=== PATIENT | male | born 1960 | race Caucasian/White ===

== ENCOUNTER 2023-06-27 09:11 | Observation (INO) | payer OTHER ==
[2023-06-27 09:21] VITALS: TEMP 98.1
--- NOTE | 2023-06-27 09:42 | ED ---
General Adult HPI - General Chief complaint: Chest Pain Stated complaint: chest pain Time Seen by Provider: 06/27/23 09:29 Source: patient, RN notes reviewed, old records reviewed Mode of arrival: wheelchair Limitations: no limitations - History of Present Illness Initial comments: 63-year-old male presenting for evaluation of central and left-sided chest pain radiating to the left arm. Patient's symptoms began several months ago with exertional chest tightness. He has followed with cardiology and has outpatient testing scheduled. This morning he developed symptoms while at rest of central chest tightness with radiation to the left arm. No associated nausea or vomiting. No diaphoresis. Patient is a nondiabetic, nonsmoker. He has no previous history of coronary artery disease. - Related Data Home Medications Medication Instructions Recorded Confirmed Aspirin EC [Ecotrin Low Dose] 81 mg PO DAILY 06/27/23 06/27/23 Clobetasol Propionate [Temovate 1 applic TOPICAL BID PRN 06/27/23 06/27/23 0.05% Cream] Meloxicam [Mobic] 15 mg PO DAILY 06/27/23 06/27/23 Turmeric Root Extract [Turmeric] 1,000 mg PO HS 06/27/23 06/27/23 Allergies Allergy/AdvReac Type Severity Reaction Status Date / Time amoxicillin Allergy Rash/Hives Verified 06/27/23 09:41 bacitracin AdvReac Rash/Hives Verified 06/27/23 09:41 [From Neosporin ([id number])] miconazole AdvReac Rash/Hives Verified 06/27/23 09:41 [From Neosporin AF] neomycin AdvReac Rash/Hives Verified 06/27/23 09:41 [From Neosporin ([id number])] polymyxin B AdvReac Rash/Hives Verified 06/27/23 09:41 [From Neosporin ([id number])] Review of Systems ROS Statement: Those systems with pertinent positive or pertinent negative responses have been documented in the HPI. ROS Other: All systems not noted in ROS Statement are negative. Past Medical History Past Medical History: No Reported History History of Any Multi-Drug Resistant Organisms: None Reported Past Surgical History: No Surgical Hx Reported Past Psychological History: No Psychological Hx Reported Smoking Status: Never smoker Past Alcohol Use History: Occasional Past Drug Use History: None Reported General Exam Limitations: no limitations General appearance: alert, in no apparent distress Head exam: Present: atraumatic, normocephalic Eye exam: Present: normal appearance, PERRL ENT exam: Present: normal exam Neck exam: Present: normal inspection. Absent: tenderness, meningismus Respiratory exam: Present: normal lung sounds bilaterally. Absent: respiratory distress, wheezes Cardiovascular Exam: Present: regular rate, normal rhythm GI/Abdominal exam: Present: soft. Absent: distended, tenderness, guarding Extremities exam: Present: normal inspection, normal capillary refill. Absent: calf tenderness Neurological exam: Present: alert, oriented X3, CN II-XII intact. Absent: motor sensory deficit Psychiatric exam: Present: normal affect, normal mood Skin exam: Present: warm, dry, intact. Absent: cyanosis, diaphoretic Course Vital Signs 06/27/23 06/27/23 09:18 09:45 Temperature 98.1 F Pulse Rate 66 60 Respiratory 18 18 Rate Blood Pressure 153/91 140/82 O2 Sat by Pulse 97 98 Oximetry Medical Decision Making - Medical Decision Making Was pt. sent in by a medical professional or institution (, PA, LEAN SPECIALIST, urgent care, hospital, or care home...) When possible be specific @ -No Did you speak to anyone other than the patient for history (EMS, parent, family, police, friend...)? What history was obtained from this source @ -No Did you review nursing and triage notes (agree or disagree)? Why? @ -I reviewed and agree with nursing and triage notes Were old charts reviewed (outside hosp., previous admission, EMS record, old EKG, old radiological studies, urgent care reports/EKG's, care home records)? Report findings @ -No old charts were reviewed Differential Diagnosis (chest pain, altered mental status, abdominal pain women, abdominal pain men, vaginal bleeding, weakness, fever, dyspnea, syncope, headache, dizziness, GI bleed, back pain, seizure, CVA, palpatations, mental health, musculoskeletal)? @ Differential Chest Pain: Stable Angina, Unstable Angina, STEMI, NSTEMI Aortic Dissection, Pneumothorax, Musculoskeletal, Esophageal Spasm GERD, Cholecystitis, Pancreatitis, Zoster, this is not meant to be an all-inclusive list. EKG interpreted by me (3pts min.). @ -Sinus rhythm rate of 61, LA interval 166, QRS duration 76, QTC 407, no ST segment elevation X-rays interpreted by me (1pt min.). @ -None done CT interpreted by me (1pt min.). @ -None done U/S interpreted by me (1pt. min.). @ -None done What testing was considered but not performed or refused? (CT, X-rays, U/S, labs)? Why? @ -None What meds were considered but not given or refused? Why? @ -None Did you discuss the management of the patient with other professionals (professionals i.e. DrMingo, PA, LEAN SPECIALIST, lab, RT, psych nurse, social work administrator, color buffer, teacher, media liaison officer, catalytic case operator)? Give summary @ Dr. Rosado Was smoking cessation discussed for >3mins.? @ -No Was critical care preformed (if so, how long)? @ -No Were there social determinants of health that impacted care today? How? (Homelessness, low income, unemployed, alcoholism, drug addiction, transportation, low edu. Level, literacy, decrease access to med. care, assisted, rehab)? @ -No Was there de-escalation of care discussed even if they declined (Discuss DNR or withdrawal of care, Hospice)? DNR status @ -No What co-morbidities impacted this encounter? (DM, HTN, Smoking, COPD, CAD, Cancer, CVA, ARF, Chemo, Hep., AIDS, mental health diagnosis, sleep apnea, morbid obesity)? @ -None Was patient admitted / discharged? Hospital course, mention meds given and route, prescriptions, significant lab abnormalities, going to OR and other pertinent info. @ -[63-year-old male presenting with chest pain with typical features. No prior history of CAD. EKG is sinus rhythm without ST segment elevation. Chest x-ray is clear. Has normal CBC, normal CMP, negative initial troponin. He is given aspirin emergency department and will be admitted for serial cardiac enzymes, telemetry, cardiology consultation. Undiagnosed new problem with uncertain prognosis? @ -No Drug Therapy requiring intensive monitoring for toxicity (Heparin, Nitro, Insulin, Cardizem)? @ -No Were any procedures done? @ -No Diagnosis/symptom? @ -[Chest pain Acute, or Chronic, or Acute on Chronic? @ Acute Uncomplicated (without systemic symptoms) or Complicated (systemic symptoms)? @ -default Side effects of treatment? @ -No Exacerbation, Progression, or Severe Exacerbation? @ -No Poses a threat to life or bodily function? How? (Chest pain, [place], NC, pneumonia, PE, COPD, DKA, ARF, appy, cholecystitis, CVA, Diverticulitis, Homicidal, Suicidal, threat to staff... and all critical care pts) @ -Yes, chest pain - Lab Data Result diagrams: 06/27/23 09:44 06/27/23 09:44 Lab Results 06/27/23 06/27/23 06/27/23 Range/Units 09:44 09:44 09:44 WBC 5.1 (3.8-10.6) k/uL RBC 4.79 (4.30-5.90) m/uL Hgb 14.2 (13.0-17.5) gm/dL Hct 42.1 (39.0-53.0) % MCV 87.9 (80.0-100.0) fL MCH 29.7 (25.0-35.0) pg MCHC 33.8 (31.0-37.0) g/dL RDW 13.4 (11.5-15.5) % Plt Count 271 (150-450) k/uL MPV 7.7 Neutrophils % 52 % Lymphocytes % 32 % Monocytes % 6 % Eosinophils % 7 % Basophils % 1 % Neutrophils # 2.6 (1.3-7.7) k/uL Lymphocytes # 1.6 (1.0-4.8) k/uL Monocytes # 0.3 (0-1.0) k/uL Eosinophils # 0.4 (0-0.7) k/uL Basophils # 0.1 (0-0.2) k/uL PT 10.4 (9.0-12.0) sec INR 1.0 (<1.2) APTT 23.4 (22.0-30.0) sec Sodium 139 (137-145) mmol/L Potassium 4.8 (3.5-5.1) mmol/L Chloride 105 (98-107) mmol/L Carbon Dioxide 25 (22-30) mmol/L Anion Gap 9 mmol/L BUN 17 (9-20) mg/dL Creatinine 1.02 (0.66-1.25) mg/dL Est GFR (CKD-EPI)AfAm 90 (>60 ml/min/1.73 sqM) Est GFR (CKD-EPI)NonAf 78 (>60 ml/min/1.73 sqM) Glucose 100 H (74-99) mg/dL Calcium 9.3 (8.4-10.2) mg/dL Magnesium 2.2 (1.6-2.3) mg/dL Total Bilirubin 0.9 (0.2-1.3) mg/dL AST 41 (17-59) U/L ALT 40 (4-49) U/L Alkaline Phosphatase 65 (38-126) U/L Troponin I (0.000-0.034) ng/mL Total Protein 7.8 (6.3-8.2) g/dL Albumin 4.3 (3.5-5.0) g/dL 06/27/23 Range/Units 09:44 WBC (3.8-10.6) k/uL RBC (4.30-5.90) m/uL Hgb (13.0-17.5) gm/dL Hct (39.0-53.0) % MCV (80.0-100.0) fL MCH (25.0-35.0) pg MCHC (31.0-37.0) g/dL RDW (11.5-15.5) % Plt Count (150-450) k/uL MPV Neutrophils % % Lymphocytes % % Monocytes % % Eosinophils % % Basophils % % Neutrophils # (1.3-7.7) k/uL Lymphocytes # (1.0-4.8) k/uL Monocytes # (0-1.0) k/uL Eosinophils # (0-0.7) k/uL Basophils # (0-0.2) k/uL PT (9.0-12.0) sec INR (<1.2) APTT (22.0-30.0) sec Sodium (137-145) mmol/L Potassium (3.5-5.1) mmol/L Chloride (98-107) mmol/L Carbon Dioxide (22-30) mmol/L Anion Gap mmol/L BUN (9-20) mg/dL Creatinine (0.66-1.25) mg/dL Est GFR (CKD-EPI)AfAm (>60 ml/min/1.73 sqM) Est GFR (CKD-EPI)NonAf (>60 ml/min/1.73 sqM) Glucose (74-99) mg/dL Calcium (8.4-10.2) mg/dL Magnesium (1.6-2.3) mg/dL Total Bilirubin (0.2-1.3) mg/dL AST (17-59) U/L ALT (4-49) U/L Alkaline Phosphatase (38-126) U/L Troponin I <0.012 (0.000-0.034) ng/mL Total Protein (6.3-8.2) g/dL Albumin (3.5-5.0) g/dL Disposition Clinical Impression: Chest pain Disposition: ADMITTED IP TO THIS HOSP Condition: Stable Is patient prescribed a controlled substance at d/c from ED?: No Referrals: Anshul Perry MD [Primary Care Provider] - 1-2 days Time of Disposition: 11:37
--- NOTE | 2023-06-27 09:53 | XR ---
EXAMINATION TYPE: XR chest 2V DATE OF EXAM: 06/27/2023 9:49 AM COMPARISON: None TECHNIQUE: XR chest 2V Frontal and lateral views of the chest. CLINICAL INDICATION:Male, 63 years old with history of Chest Pain; FINDINGS: Lungs/Pleura: There is no evidence of pleural effusion, focal consolidation, or pneumothorax. Pulmonary vascularity: Unremarkable. Heart/mediastinum: Cardiomediastinal silhouette is unremarkable. Atherosclerotic calcifications are seen in the aorta. Musculoskeletal: No acute osseous pathology. IMPRESSION: No acute cardiopulmonary disease/process.
[2023-06-27 10:15] LABS: Basophils # (A) 0.1 k/uL (0-0.2); Basophils % (A) 1 %; Eosinophils # (A) 0.4 k/uL (0-0.7); Eosinophils % (A) 7 %; HCT 42.1 % (39.0-53.0); HGB 14.2 gm/dL (13.0-17.5); Lymphocytes # (A) 1.6 k/uL (1.0-4.8); Lymphocytes % (A) 32 %; MCH 29.7 pg (25.0-35.0); MCHC 33.8 g/dL (31.0-37.0); MCV 87.9 fL (80.0-100.0); Mean Platelet Volume 7.7; Monocytes # (A) 0.3 k/uL (0-1.0); Monocytes % (A) 6 %; Neutrophils # (A) 2.6 k/uL (1.3-7.7); Neutrophils % (A) 52 %; Platelet Count 271 k/uL (150-450); RBC 4.79 m/uL (4.30-5.90); RDW 13.4 % (11.5-15.5); WBC 5.1 k/uL (3.8-10.6)
[2023-06-27 10:24] LABS: Partial Thromboplastin Time 23.4 sec (22.0-30.0); Prothrombin Time 10.4 sec (9.0-12.0)
[2023-06-27 10:49] LABS: ALT 40 U/L (4-49); African American GFR (CKD) 90 (>60 ml/min/1.73 sqM); Albumin 4.3 g/dL (3.5-5.0); Anion Gap 9 mmol/L; Blood Urea Nitrogen 17 mg/dL (9-20); Calcium 9.3 mg/dL (8.4-10.2); Carbon Dioxide 25 mmol/L (22-30); Chloride 105 mmol/L (98-107); Glucose 100 mg/dL (74-99); Non-African American GFR(CKD) 78 (>60 ml/min/1.73 sqM); Sodium 139 mmol/L (137-145); Total Bilirubin 0.9 mg/dL (0.2-1.3); Total Protein 7.8 g/dL (6.3-8.2)
[2023-06-27 11:12] LABS: AST 41 U/L (17-59); Alkaline Phosphatase 65 U/L (38-126); Magnesium 2.2 mg/dL (1.6-2.3); Potassium 4.8 mmol/L (3.5-5.1)
[2023-06-27] MEDS ORDERED: MORPHINE SULFATE 4 MG/ML SYRINGE IV PRN (11:34)
[2023-06-27] MEDS ORDERED: ASPIRIN 325 MG TAB PO STA ×2 (11:34→12:20)
[2023-06-27] MEDS ORDERED: ACETAMINOPHEN TAB 325 MG TAB PO PRN (11:34)
[2023-06-27] MEDS ORDERED: NALOXONE 0.4 MG/ML 1 ML VIAL IV PRN (11:34)
[2023-06-27] MEDS ORDERED: ATORVASTATIN 80 MG TAB PO STA (12:20)
[2023-06-27] MEDS ORDERED: ALPRAZolam 0.5 MG TAB PO PRN (12:20)
[2023-06-27] MEDS ORDERED: ALPRAZolam 0.25 MG TAB PO PRN (12:20)
[2023-06-27] MEDS ORDERED: NITROGLYCERIN SL TABS 0.4 MG TAB SUBLINGUAL PRN (12:20)
[2023-06-27] MEDS ORDERED: METOPROLOL TARTRATE 25 MG TAB PO SCH (12:30)
[2023-06-27] MEDS ORDERED: SODIUM CHLORIDE 0.9% 1,000 ML IV SCH (12:32)
[2023-06-27] MEDS ORDERED: fentaNYL (PF) 50 MCG/ML 2 ML AMP ONE (13:08)
[2023-06-27] MEDS ORDERED: VERAPAMIL 2.5 MG/ML 2 ML AMP ONE ×2 (13:08→13:31)
[2023-06-27 13:09] VITALS: RESP 16
[2023-06-27] MEDS ORDERED: fentaNYL (PF) 50 MCG/ML 2 ML AMP IVP ONE (13:25)
[2023-06-27] MEDS ORDERED: MIDAZOLAM 2 MG/2 ML VIAL IVP ONE (13:25)
[2023-06-27] MEDS ORDERED: LIDOCAINE 2% (PF) 20 MG/ML 5 ML VIAL SQ ONE (13:27)
--- NOTE | 2023-06-27 13:27 | P.CRDCN ---
History of Present Illness History of present illness: HISTORY OF PRESENT ILLNESS: This is a 63-year-old male with a past medical history significant for mitral valve prolapse, PFO, borderline hyperlipidemia, and strong family history of coronary artery disease. Patient follows in the office with Dr. Stuart. We have been asked to see the patient in consultation for chest pain. Patient examined at the bedside in the emergency room. Patient states over the past 3 months he has been having exertional chest pain. He states over the past couple days his chest pain has been getting worse. He states the pain is exertionally related. He states when he walks he begins to have tightness in his chest. He states the pain resolves with rest. He denies any nausea or vomiting. He denies any shortness of breath. He denies dizziness or lightheadedness. He does report some occasional leg swelling. * EKG reveals sinus mechanism with no signs of acute ischemia * Chest xray negative for acute process * Laboratory data: W BC 5.1. Hemoglobin 14.2. Platelet count 271. Sodium 139. Potassium 4.8. BUN 17. Creatinine 1.02. Troponin negative 1. * Current home cardiac medications include aspirin 81 mg daily REVIEW OF SYSTEMS: At the time of my exam: CONSTITUTIONAL: Denies fever or chills. HEENT: Denies blurred vision, vision changes, or eye pain. Denies hemoptysis CARDIOVASCULAR: Denies chest pain. Denies orthopnea. Denies PND. Denies palpitations RESPIRATORY: Denies shortness of breath. GASTROINTESTINAL: Denies abdominal pain. Denies nausea or vomiting. HEMATOLOGIC: Denies bleeding disorders. GENITOURINARY: Denies any blood in urine. SKIN: Denies pruitis. Denies rash. PHYSICAL EXAM: VITAL SIGNS: Reviewed. GENERAL: Well-developed in no acute distress. HEENT: Head is normocephalic. Pupils are equal, round. Sclerae anicteric. Mucous membranes of the mouth are moist. Neck supple. No JVD or thyromegaly LUNGS: Respirations even and unlabored. Lungs essentially clear to auscultation bilaterally. HEART: Regular rate and rhythm. S1 and S2 heard. Systolic murmur noted. ABDOMEN: Soft. Nondistended. Nontender. EXTREMITIES: Normal range of motion. No clubbing or cyanosis. Peripheral pulses intact. No lower extremity edema NEUROLOGIC: Awake and alert. Oriented x 3. ASSESSMENT: Unstable angina Exertional chest pain x 3 months, worsening Borderline hyperlipidemia History of mitral valve prolapse History of PFO History of palpitations Family history of coronary artery disease PLAN: Continue aspirin 81 mg daily Begin metoprolol tartrate 25 mg twice a day Check proBNP Obtain 2-D echo to assess cardiac structure and function Patient to undergo cardiac catheterization today with Dr. Stuart Further recommendations pending patient's course Nurse practitioner note has been reviewed by physician. Signing provider agrees with the documented findings, assessment, and plan of care. Past Medical History Past Medical History: No Reported History History of Any Multi-Drug Resistant Organisms: None Reported Past Surgical History: No Surgical Hx Reported Past Psychological History: No Psychological Hx Reported Smoking Status: Never smoker Past Alcohol Use History: Occasional Past Drug Use History: None Reported Medications and Allergies Home Medications Medication Instructions Recorded Confirmed Type Aspirin EC [Ecotrin Low Dose] 81 mg PO DAILY 06/27/23 06/27/23 History Clobetasol Propionate [Temovate 1 applic TOPICAL BID PRN 06/27/23 06/27/23 History 0.05% Cream] Meloxicam [Mobic] 15 mg PO DAILY 06/27/23 06/27/23 History Turmeric Root Extract [Turmeric] 1,000 mg PO HS 06/27/23 06/27/23 History Allergies Allergy/AdvReac Type Severity Reaction Status Date / Time amoxicillin Allergy Rash/Hives Verified 06/27/23 09:41 bacitracin AdvReac Rash/Hives Verified 06/27/23 09:41 [From Neosporin ([id number])] miconazole AdvReac Rash/Hives Verified 06/27/23 09:41 [From Neosporin AF] neomycin AdvReac Rash/Hives Verified 06/27/23 09:41 [From Neosporin ([id number])] polymyxin B AdvReac Rash/Hives Verified 06/27/23 09:41 [From Neosporin ([id number])] Physical Exam Vitals: Vital Signs Temp Pulse Resp BP Pulse Ox 06/27/23 13:00 59 L 16 148/82 97 06/27/23 12:30 63 20 133/77 97 06/27/23 12:00 64 16 141/87 98 06/27/23 11:30 65 18 150/84 97 06/27/23 11:00 60 16 149/84 98 06/27/23 10:30 61 16 139/81 99 06/27/23 09:45 60 18 140/82 98 06/27/23 09:18 98.1 F 66 18 153/91 97 Intake and Output 06/26/23 06/27/23 06/27/23 22:59 06:59 14:59 Other: Weight 102.058 kg Results 06/27/23 09:44 06/27/23 09:44 Cardiac Enzymes 06/27/23 06/27/23 Range/Units 09:44 09:44 AST 41 (17-59) U/L Troponin I <0.012 (0.000-0.034) ng/mL Coagulation 06/27/23 Range/Units 09:44 PT 10.4 (9.0-12.0) sec APTT 23.4 (22.0-30.0) sec CBC 06/27/23 Range/Units 09:44 WBC 5.1 (3.8-10.6) k/uL RBC 4.79 (4.30-5.90) m/uL Hgb 14.2 (13.0-17.5) gm/dL Hct 42.1 (39.0-53.0) % Plt Count 271 (150-450) k/uL Comprehensive Metabolic Panel 06/27/23 Range/Units 09:44 Sodium 139 (137-145) mmol/L Potassium 4.8 (3.5-5.1) mmol/L Chloride 105 (98-107) mmol/L Carbon Dioxide 25 (22-30) mmol/L BUN 17 (9-20) mg/dL Creatinine 1.02 (0.66-1.25) mg/dL Glucose 100 H (74-99) mg/dL Calcium 9.3 (8.4-10.2) mg/dL AST 41 (17-59) U/L ALT 40 (4-49) U/L Alkaline Phosphatase 65 (38-126) U/L Total Protein 7.8 (6.3-8.2) g/dL Albumin 4.3 (3.5-5.0) g/dL Current Medications Generic Name Dose Route Start Last Admin Trade Name Freq PRN Reason Stop Dose Admin Acetaminophen 650 mg 06/27/23 11:34 Acetaminophen Tab 325 Mg Tab PO Q6HR PRN Mild Pain or Fever > 100.5 Alprazolam 0.25 mg 06/27/23 12:20 Alprazolam 0.25 Mg Tab PO Q6HR PRN Mild Anxiety Alprazolam 0.5 mg 06/27/23 12:20 Alprazolam 0.5 Mg Tab PO Q6HR PRN Moderate Anxiety Aspirin 81 mg 06/28/23 09:00 Aspirin 81 Mg PO DAILY RAÚL Heparin Sodium (Porcine) 10, 1,001 mls @ 999 mls/hr 06/28/23 07:00 000 unit/ Sodium Chloride IRRIGATION 06/28/23 23:00 ONCE PRN INTRA-OP Heparin Sodium (Porcine) 2,500 250.5 mls @ 250 mls/hr 06/28/23 07:00 unit/ Sodium Chloride IRRIGATION 06/28/23 23:00 ONCE PRN INTRA-OP Sodium Chloride 1,000 mls @ 100 mls/hr 06/27/23 12:32 06/27/23 12:32 Saline 0.9% IV 100 mls/hr .Q10H RAÚL Administration Metoprolol Tartrate 25 mg 06/27/23 12:30 06/27/23 12:33 Metoprolol Tartrate 25 Mg Tab PO 25 mg BID RAÚL Administration Morphine Sulfate 4 mg 06/27/23 11:34 Morphine Sulfate 4 Mg/Ml Syringe IV Q4HR PRN Severe Pain (Scale 7 to 10) Naloxone HCl 0.2 mg 06/27/23 11:34 Naloxone 0.4 Mg/Ml 1 Ml Vial IV Q2M PRN Opioid Reversal Nitroglycerin 0.4 mg 06/27/23 12:20 Nitroglycerin Sl Tabs 0.4 Mg Tab SUBLINGUAL Q5M PRN Chest Pain Intake and Output 06/26/23 06/27/23 06/27/23 22:59 06:59 14:59 Other: Weight 102.058 kg Patient Weight 06/28/23 06:59 Weight 102.058 kg 06/27/23 09:44 06/27/23 09:44
[2023-06-27] MEDS ORDERED: VERAPAMIL SYRINGE (5 MG/10 ML) INTRAARTER ONE (13:29)
[2023-06-27] MEDS ORDERED: HEPARIN SODIUM 1,000 UN/ML (10ML VL) IVP ONE (13:33)
[2023-06-27] MEDS ORDERED: SODIUM CHLORIDE 0.9% 1,000 ML IV ONE (13:33)
[2023-06-27] MEDS ORDERED: IOPAMIDOL-370 100ML BTL INJ ONE (13:39)
--- NOTE | 2023-06-27 13:43 | P.CARDCATH ---
Description of Procedure: PROCEDURES PERFORMED: Left heart catheterization, bilateral coronary angiography, ultrasound guided arterial access INDICATION: Increasing chest pain with exertion concerning for unstable angina CONSENT:I have discussed the risks, benefits and alternative therapies for the above-mentioned procedure and for both sedation/analgesia as well as necessary blood product administration, if indicated, as they pertain to this patient. The patient has indicated understanding and acceptance of the risks and procedures discussed. PROCEDURE: After the risks, benefits and alternatives of the above mentioned procedure explained in detail with the patient, informed consent was obtained. Patient was taken to the catheterization lab and prepped and draped in usual fashion. Ultrasound guidance was used to assess for arterial access. 1% lidocaine was used to anesthetize the right radial artery. A 6-Irish sheath was placed in the right radial artery using modified Seldinger technique and ultrasound guidance. Left coronary angiography was performed with a 5-Irish JL 3.5 catheter and right coronary angiography was performed with a 5-Irish JR5 catheter in various views. A 5-Irish FR5 catheter was inserted into the left ventricle and pressure measurements were obtained. The right radial sheath was removed and a TR band was placed with hemostasis achieved. The patient tolerated the procedure well. Patient was transported back to the post catheterization holding area in stable condition. Conscious Sedation: Patient was monitored under the direct supervision of myself for conscious sedation using Versed and fentanyl for a total duration of 13 minutes HEMODYNAMICS: Aorta: 139/74 LV: 140/11, LVEDP 20 SELECTIVE CORONARY ARTERIOGRAPHY: LEFT MAIN: The left main is a large caliber vessel which bifurcates into the LAD and circumflex. There is no significant stenosis. LEFT ANTERIOR DESCENDING CORONARY ARTERY: LAD is a large caliber vessel which wraps around to the apex. There is no significant stenosis. LEFT CIRCUMFLEX CORONARY ARTERY: Left circumflex is a moderate caliber vessel without significant stenosis. RIGHT CORONARY ARTERY: The right coronary artery is a large caliber vessel which gives off a PDA and PLV branch and is the dominant vessel. There is no significant stenosis. FINAL IMPRESSION: 1. Normal coronary arteries as described above. 2. Mildly elevated left sided filling pressures PLAN: 1. Aggressive risk factor modification per most recent ACC/AHA guidelines. 2. Follow-up in the office in 1-2 weeks.
[2023-06-27 15:23] VITALS: BP 118/66
[2023-06-27 15:36] VITALS: PULSE 69
--- NOTE | 2023-06-27 19:51 | P.HPIM ---
History of Present Illness H&P Date: 06/27/23 Chief Complaint: Chest pain This is a pleasant 63-year-old patient who follows with Dr. Perry. Patient is accompanied by his in the ER. 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 He has known mitral valve prolapse and a PFO. And a family history of CAD. Patient has episodes of chest pain on and off for quite some time. He especially notices the pain to be worse when he lies down on his left side. He may have some exertional component of the same. Yesterday he was at the office working on his computer. Developed left-sided chest pain. When down the left arm. There is no dizziness no lightheadedness no tiredness or shortness breath. Decided to come in. Otherwise patient is pretty active. Review of systems: GEN.: None EYES: None HEENT: None NECK: None RESPIRATORY: None CARDIOVASCULAR: As above GASTROINTESTINAL: None GENITOURINARY: None MUSCULOSKELETAL: Some joint pains LYMPHATICS: None HEMATOLOGICAL: None PSYCHIATRY: None NEUROLOGICAL: None Past medical history to include: Mitral valve prolapse, patent forearm ovale Social history: Patient involved in [employer]. Does not smoke. Alcohol occasionally. . Physical examination: VITAL SIGNS: 98.1, 66, 18, 1 53 x 91, 97% room air GENERAL: BMI 28.9, sitting up in bed awake not in distress. EYES: Pupils equal. Conjunctiva normal. HEENT: External appearance of nose and ears normal, oral cavity grossly normal. NECK: JVD not raised; masses not palpable. HEART: First and second heart sounds are normal; no edema. LUNGS: Respiratory rate normal; clear to auscultation. ABDOMEN: Soft, nontender, liver spleen not palpable, no masses palpable. PSYCH: Alert and oriented x3; mood and affect normal. MUSCULOSKELETAL:No Clubbing/cyanosis;muscles-grossly intact. Some OA NEUROLOGICAL: Cranial nerves grossly intact; no facial asymmetry, power and se nsation grossly intact. LYMPHATICS: No lymph nodes palpable in the axilla and neck INVESTIGATIONS, reviewed in the clinical context: White count 5.1 hemoglobin 14.2 platelets 271 sodium 139 potassium 4.8 BUN 17 creatinine 1.02 Troponin I less than 0.012 EKG tracing personally reviewed by me: Normal sinus rhythm Chest x-ray film personally reviewed by me-unremarkable Assessment and plan: -Anterior chest wall pain. Rule out unstable angina. Patient has some rather atypical features. Chordee/tolerance at baseline. Need to rule out cardiac cause. Patient has a positive family history of CAD. Cardiology consulted. Aspirin. -Mitral valve prolapse -Patent fforamen ovale Aspirin -Primary osteoarthritis Tylenol/Mobic as needed Care was discussed with the patient and . Cardiology consulted. Past Medical History Past Medical History: No Reported History History of Any Multi-Drug Resistant Organisms: None Reported Past Surgical History: No Surgical Hx Reported Past Psychological History: No Psychological Hx Reported Smoking Status: Never smoker Past Alcohol Use History: Occasional Past Drug Use History: None Reported Medications and Allergies Home Medications Medication Instructions Recorded Confirmed Type Aspirin EC [Ecotrin Low Dose] 81 mg PO DAILY 06/27/23 06/27/23 History Clobetasol Propionate [Temovate 1 applic TOPICAL BID PRN 06/27/23 06/27/23 History 0.05% Cream] Meloxicam [Mobic] 15 mg PO DAILY 06/27/23 06/27/23 History Turmeric Root Extract [Turmeric] 1,000 mg PO HS 06/27/23 06/27/23 History Allergies Allergy/AdvReac Type Severity Reaction Status Date / Time amoxicillin Allergy Rash/Hives Verified 06/27/23 09:41 bacitracin AdvReac Rash/Hives Verified 06/27/23 09:41 [From Neosporin ([id number])] miconazole AdvReac Rash/Hives Verified 06/27/23 09:41 [From Neosporin AF] neomycin AdvReac Rash/Hives Verified 06/27/23 09:41 [From Neosporin ([id number])] polymyxin B AdvReac Rash/Hives Verified 06/27/23 09:41 [From Neosporin ([id number])] Physical Exam Vitals: Vital Signs Temp Pulse Resp BP Pulse Ox 06/27/23 09:45 60 18 140/82 98 06/27/23 09:18 98.1 F 66 18 153/91 97 Intake and Output 06/26/23 06/27/23 06/27/23 22:59 06:59 14:59 Other: Weight 102.058 kg Results CBC & Chem 7: 06/27/23 09:44 06/27/23 09:44 Labs: Abnormal Lab Results - Last 24 Hours (Table) 06/27/23 Range/Units 09:44 Glucose 100 H (74-99) mg/dL
--- NOTE | 2023-06-27 19:53 | P.DS ---
Providers Date of admission: 06/27/23 11:34 Expected date of discharge: 06/27/23 Attending physician: Axel Rosado Consults: 06/27/23 11:34 Consult Physician Routine Consulting Provider: Jeff Stuart Consult Reason/Comments: CP Do you want consulting provider notified?: Yes [facility] Course: Chief Complaint: Chest pain This is a pleasant 63-year-old patient who follows with Dr. Perry. Patient is accompanied by his in the ER. 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 He has known mitral valve prolapse and a PFO. And a family history of CAD. Patient has episodes of chest pain on and off for quite some time. He especially notices the pain to be worse when he lies down on his left side. He may have some exertional component of the same. Yesterday he was at the office working on his computer. Developed left-sided chest pain. When down the left arm. There is no dizziness no lightheadedness no tiredness or shortness breath. Decided to come in. Otherwise patient is pretty active. Patient is seen by Dr. Stuart from cardiology. Patient underwent a cardiac catheterization. Normal coronary arteries. Cleared by cardiac surgery for discharge. Past medical history to include: Mitral valve prolapse, patent forearm ovale Social history: Patient involved in [employer]. Does not smoke. Alcohol occasionally. . Physical examination: VITAL SIGNS: 98.1, 66, 18, 1 53 x 91, 97% room air GENERAL: BMI 28.9, sitting up in bed awake not in distress. EYES: Pupils equal. Conjunctiva normal. HEENT: External appearance of nose and ears normal, oral cavity grossly normal. NECK: JVD not raised; masses not palpable. HEART: First and second heart sounds are normal; no edema. LUNGS: Respiratory rate normal; clear to auscultation. ABDOMEN: Soft, nontender, liver spleen not palpable, no masses palpable. PSYCH: Alert and oriented x3; mood and affect normal. MUSCULOSKELETAL:No Clubbing/cyanosis;muscles-grossly intact. Some OA NEUROLOGICAL: Cranial nerves grossly intact; no facial asymmetry, power and sensation grossly intact. LYMPHATICS: No lymph nodes palpable in the axilla and neck INVESTIGATIONS, reviewed in the clinical context: White count 5.1 hemoglobin 14.2 platelets 271 sodium 139 potassium 4.8 BUN 17 creatinine 1.02 Troponin I less than 0.012 EKG tracing personally reviewed by me: Normal sinus rhythm Chest x-ray film personally reviewed by me-unremarkable Assessment and plan: -Anterior chest wall pain. Possibly musculoskeletal. Negative Left cardiac catheterization -Mitral valve prolapse -Patent fforamen ovale Aspirin -Primary osteoarthritis Tylenol/Mobic as needed Disposition: Home Plan - Discharge Summary New Discharge Prescriptions: Continue Meloxicam [Mobic] 15 mg PO DAILY Clobetasol Propionate [Temovate 0.05% Cream] 1 applic TOPICAL BID PRN PRN Reason: Skin Irritation Aspirin EC [Ecotrin Low Dose] 81 mg PO DAILY No Action Turmeric Root Extract [Turmeric] 1,000 mg PO HS Discharge Medication List Aspirin EC [Ecotrin Low Dose] 81 mg PO DAILY 06/27/23 [History] Clobetasol Propionate [Temovate 0.05% Cream] 1 applic TOPICAL BID PRN 06/27/23 [History] Meloxicam [Mobic] 15 mg PO DAILY 06/27/23 [History] Turmeric Root Extract [Turmeric] 1,000 mg PO HS 06/27/23 [History] Follow up Appointment(s)/Referral(s): Jeff Stuart DO [STAFF PHYSICIAN] - 4 Weeks (APPOINTMENT MADE ON @ 2:30PM ) Anshul Perry MD [Primary Care Provider] - 1-2 days (APPOINTMENT MADE FOR TOM @ 2:30PM ) Patient Instructions/Handouts: Moderate Sedation (DC), After Radial Heart Catheterization (GEN) Activity/Diet/Wound Care/Special Instructions: *NO LIFTING, PUSHING, OR PULLING ANYTHING OVER 5 POUNDS FOR 5 DAYS *NO DRIVING FOR 3 DAYS *YOU CAN REMOVE YOUR DRESSING TOMORROW BUT DO NOT SUBMERSE YOUR PUNCTURE SITE IN WATER FOR A FEW DAYS TO PREVENT INFECTION - SO NO TUB BATHS, POOLS, HOT TUBS, DISHES...ETC *ANY SIGNS OF BLEEDING (HARDNESS, SWELLING, OR EXCESSIVE BRUISING) HOLD DIRECT PRESSURE ON YOUR PUNCTURE SITE AND COME TO THE NEAREST EMERGENCY ROOM TO GET YOUR PUNCTURE SITE LOOKED AT - DO NOT DRIVE YOURSELF! EITHER CALL EMS OR HAVE SOMEONE DRIVE YOU! Discharge Disposition: HOME SELF-CARE
[2023-06-28] MEDS ORDERED: HEPARIN SODIUM,PORCINE 10,000 UNIT in SODIUM CHLORIDE 0.9% 1,000 ML IRRIGATION PRN (07:00)
[2023-06-28] MEDS ORDERED: HEPARIN SODIUM,PORCINE (1 ML) 2,500 UNIT in SODIUM CHLORIDE 0.9% 250 ML IRRIGATION PRN (07:00)
[2023-06-28] MEDS ORDERED: ASPIRIN 81 MG PO SCH (09:00)
== END 2023-06-27 16:34 | disposition home or self-care (01) ==
LOC: EC 09:11 → 3SCARD 11:34
PROVIDERS: ADMIT Hospitalist; ATTEND Hospitalist
DX: R07.89 Other chest pain (principal); I34.1 Nonrheumatic mitral (valve) prolapse; Q21.12 Patent foramen ovale; M19.91 Primary osteoarthritis, unspecified site; E78.5 Hyperlipidemia, unspecified; Z79.82 Long term (current) use of aspirin; Z79.1 Long term (current) use of non-steroidal anti-inflammatories (NSAID); Z88.0 Allergy status to penicillin; Z88.1 Allergy status to other antibiotic agents; Z82.49 Family history of ischemic heart disease and other diseases of the circulatory system
CPT/HCPCS: 99285; 36415; 93005; 93458; 76937; 83880; 80053; 83735; 84484; 85025; 85610; 85730; 71046; G0378; J2250; J3010; J1644; Q9967; J2001